=== PATIENT | male | born 1980 | race Caucasian/White ===

== ENCOUNTER 2017-09-01 08:45 | Day surgery (SDC) | payer OTHER, SELFPAY ==
[~2017-09-01] VITALS: Ht 170.2 cm; Wt 68.0 kg
== END 2017-09-02 23:04 | disposition home or self-care (01) ==
LOC: ORSCMMR 08:45
PROVIDERS: Surgery
PROC: 0YU50JZ Supplement Right Inguinal Region with Synthetic Substitute, Open Approach (ICD-10-PCS; principal; 2017-09-01 10:15)
DX: K40.90 Unilateral inguinal hernia, without obstruction or gangrene, not specified as recurrent (principal); F17.210 Nicotine dependence, cigarettes, uncomplicated
CPT/HCPCS: C1781; J0690; J1100; J1885; J2405; J7120